=== PATIENT | female | born 1950 | race Caucasian/White ===

== ENCOUNTER 2017-10-27 10:52 | Emergency (ER) | payer SELFPAY ==
[~2017-10-27] VITALS: Ht 170.2 cm; Wt 105.2 kg
[~2017-10-27 10:52] MED LIST: ALBU90OI61 INH; BETA.05TC TOP; CALMAGZIN; CITA20 PO; Celexa40 MG PO; LEVSOD75 PO; METF500 PO; OMEG1CAP30; PRAV20 PO; SYNTHROID0.2 MG PO; VITAMIN D32000 UNIT; [UNRECOGNIZED DRUG - OTHER] TOP
[2017-10-27 11:16] LABS: BASOPHILS ABSOLUTE AUTO 0.05 K/mm3 (0.00-0.23); BASOPHILS PERCENT AUTO 0 % (0-2); EOSINOPHILS ABSOLUTE AUTO 0.25 K/mm3 (0.00-0.68); EOSINOPHILS PERCENT AUTO 2 % (0-6); Hematocrit 49.6 % (33.0-51.0); Hemoglobin 16.3 g/dL (11.5-16.0); IMMATURE GRAN ABSOLUTE AUTO 0.04 K/mm3 (0.00-0.10); IMMATURE GRAN PERCENT AUTO 0 % (0-1); LYMPHOCYTES PERCENT AUTO 34 % (21-46); MONOCYTES PERCENT AUTO 7 % (4-13); Mean Corpuscular HGB 27.6 pg (26.0-34.0); Mean Corpuscular HGB Conc 32.9 g/dL (31.5-36.5); Mean Corpuscular Volume 84 fL (80-100); Mean Platelet Volume 11.2 fL (9.1-12.4); NEUTROPHILS ABSOLUTE AUTO 6.97 K/mm3 (1.96-9.15); NEUTROPHILS PERCENT AUTO 56 % (41-73); Platelet Count 275 K/mm3 (150-400); RDW Standard Deviation 39.6 fL (35.1-46.3); White Blood Cell Count 12.51 K/mm3 (4.00-11.30)
[2017-10-27 11:45] LABS: Alanine Aminotransfer (ALT/SGP 24 U/L (12-78); Albumin, Blood 3.4 g/dL (3.4-5.0); Albumin/Globulin Ratio 0.8 (0.8-1.8); Alk Phos 88 U/L (50-136); Anion Gap 10 mmol/L (6-16); Aspartate Aminotrans (AST/SGOT 16 U/L (12-37); Bilirubin, Total 0.5 mg/dL (0.1-1.0); Blood Urea Nitrogen 18 mg/dL (8-24); CO2, Blood 26 mmol/L (21-32); Calcium, Blood 9.4 mg/dL (8.5-10.1); Chloride, Blood 105 mmol/L (98-108); Creatinine, Blood 0.78 mg/dL (0.40-1.00); Glomerular Filtration Rate >60 (60-); Glucose, Blood 96 mg/dL (70-99); Potassium, Blood 3.9 mmol/L (3.5-5.5); Sodium, Blood 141 mmol/L (136-145); Total Protein, Blood 7.4 g/dL (6.4-8.2)
[2017-10-27] MEDS ORDERED: CIME400 PO (12:47)
== END 2017-10-27 13:04 | disposition home or self-care (01) ==
LOC: ER 10:52
PROVIDERS: Emergency Medicine
DX: R10.9 Unspecified abdominal pain (principal); K31.89 Other diseases of stomach and duodenum; E03.9 Hypothyroidism, unspecified; F17.210 Nicotine dependence, cigarettes, uncomplicated; Z79.899 Other long term (current) drug therapy
CPT/HCPCS: 36415; 74177; 80053; 83690; 85025; 96374; 99284; C9113; Q9967

== ENCOUNTER 2018-08-09 06:48 | Day surgery (SDC) | payer MEDICARE, OTHER ==
[~2018-08-09] VITALS: Ht 170.2 cm; Wt 109.9 kg
[~2018-08-09 06:48] MED LIST changes: +BETA.05TCA TOP; +BIEST/PROGESTERONE TOP; +CIME400 PO; +OMEPRAZOLE MAGN20 MG PO; +Omega 3 Fish O1 EACH PO; +Synthroid300 MCG PO
--- NOTE | 2018-08-09 09:39 | NUR ---
08/09/18 0939 Muriel Vasquez AT 0850 PT DC'D W/COPIES OF INSTRUCTIONS FOR CARE AND F/U. [facility] PO WELL NO C/O SHIELD IN PLACE. AMB TO CAR W/SBA X1 [facility] WELL
== END 2018-08-09 08:50 | disposition home or self-care (01) ==
LOC: ORSCSDS 06:48
PROVIDERS: Ophthalmology
PROC: 08RJ3JZ Replacement of Right Lens with Synthetic Substitute, Percutaneous Approach (ICD-10-PCS; principal; 2018-08-09 08:00)
DX: H25.11 Age-related nuclear cataract, right eye (principal); G47.33 Obstructive sleep apnea (adult) (pediatric); E66.01 Morbid (severe) obesity due to excess calories; Z68.37 Body mass index [BMI] 37.0-37.9, adult; Z79.899 Other long term (current) drug therapy; E03.9 Hypothyroidism, unspecified; F17.210 Nicotine dependence, cigarettes, uncomplicated
CPT/HCPCS: J2001; J2250; J3010; J3301; J7120; V2632